=== PATIENT | male | born 1940 | race Caucasian/White ===

== ENCOUNTER 2017-11-28 12:10 | Emergency (ER) | payer OTHER ==
[2017-11-28 12:20] VITALS: RESP 18
--- NOTE | 2017-11-28 12:47 | EDPHY ---
HPI/HX/ROS/PE/MDM Narrative: CHIEF COMPLAINT: Fall HPI: This patient is an anticoagulated 77 y/o male with history of atrial fibrillation presenting with facial trauma secondary to a fall yesterday evening around 5:00pm. He was walking down a flight of concrete steps at [employer] and caught the sole of his boot on a step and fell forward, striking his face. He did not seek care yesterday evening, and returned home. He had swelling and bruising around his eye, which resolved slightly with ice application. This morning, he woke with pain around his eye. His eye was swollen nearly shut, but has currently resolved somewhat and he denies any changes in vision. He denies any current facial pain. He endorses bruising to both shins as well, but is able to ambulate and bear weight without pain. He denies any further trauma or other complaints. REVIEW OF SYSTEMS: Aside from elements discussed in the HPI, a comprehensive 10-point review of systems was reviewed and is negative. PMH: 1. Atrial fibrillation (Coumadin) 2. Gout SOCIAL HISTORY: Significant other at bedside. Lives in [place]. Retired. PHYSICAL EXAM: General:Patient is alert, in no acute distress. ENT: Swelling and bruising over left eye. Eyes are normal to inspection. ENT inspection normal. Neck: Normal inspection. Full range of motion. Respiratory:No respiratory distress. Breath sounds normal bilaterally. Cardiovascular: Irregular rate and rhythm. Strong peripheral pulses. Normal cap refill. Abdomen:The abdomen is nontender to palpation. There are no peritoneal signs. There are normal bowel sounds. Back: Normal to inspection. No tenderness to palpation. Skin: Swelling and bruising over left eye. Ecchymosis to bilateral shins. No rash. Warm and dry. Extremities: See skin findings. Normal appearance. Full range of motion. Neuro: Oriented x3. Normal motor function. Normal sensory function. ED Course: 77 y/o male presents with facial and aquino contusions following a mechanical fall yesterday evening. Exam shows swelling and bruising over left eye. Plan for CT head. Plan for labs including INR. The patent denies pain medication at this time. 13:[address] Montoya, radiologist. CT negative for acute processes. INR within normal limits. Reassessed patient. Discussed results. Plan to d/c home in good condition. Follow up and return precautions discussed. The patient is comfortable with this plan. - Data Points Laboratory Results: 11/28/17 13:10 PT 24.2 SEC H SEC (12.0-15.0) INR 2.17 H (0.83-1.16) General Time Seen by Provider: 11/28/17 12:28 Initial Vital Signs: Initial Vital Signs Temperature (C) 36.4 C 11/28/17 12:17 Heart Rate 94 11/28/17 12:17 Respiratory Rate 18 11/28/17 12:17 Blood Pressure 144/94 H 11/28/17 12:17 O2 Sat (%) 97 11/28/17 12:17 O2 Delivery Mode Room Air Allergies/Adverse Reactions: No Known Allergies Allergy (Unverified 11/28/17 12:15) Home Medications: Medication Instructions Recorded ASPIRIN 11/28/17 Allopurinol 11/28/17 Coumadin 11/28/17 Lipitor 11/28/17 Departure - Departure Disposition: Home, Routine, Self-Care Clinical Impression: Facial contusion Qualifiers: Encounter type: initial encounter Qualified Code(s): S00.83XA - Contusion of other part of head, initial encounter Condition: Good Instructions: Facial Contusion (ED) Additional Instructions: 1. Follow up with your primary care physician n 2-3 days for further evaluation. 2. Take Tylenol as directed on the packaging as needed for pain. 3. Return to the Emergency Department for severe headache, vomiting, vision changes, confusion, fever or other concerns. Referrals: Mitchell Willis MD [Primary Care Provider] - As per Instructions Report Scribed for: Blane Lewis Report Scribed by: Alejandrina Yanez Date of Report: 11/28/17 Time of Report: 12:47 Physician Review and Approval Statement: Portions of this note were transcribed by an ED scribe. I personally performed the history, physical exam, and medical decision making; and confirm the accuracy of the information in the transcribed note.
[2017-11-28 13:34] LABS: INR 2.17 (0.83-1.16); PROTIME(PATIENT) 24.2 SEC (12.0-15.0)
[2017-11-28 14:09] VITALS: BP 145/88; PULSE 79; TEMP 97.7; O2SAT 95
== END 2017-11-28 14:09 | disposition home or self-care (01) ==
DX: S00.83XA Contusion of other part of head, initial encounter (principal); Z79.01 Long term (current) use of anticoagulants; Z79.82 Long term (current) use of aspirin; W01.198A Fall on same level from slipping, tripping and stumbling with subsequent striking against other object, initial encounter; Y99.8 Other external cause status; Y93.01 Activity, walking, marching and hiking